=== PATIENT | female | born 1980 | race Caucasian/White ===

== ENCOUNTER 2018-02-03 03:45 | Inpatient (IN) | payer OTHER ==
[2018-02-03] MEDS: ELECTROLYTE-148 SOLN 1,000 ML IV SCH ×2 (04:30→15:00)
[2018-02-03] MEDS ORDERED: AMPICILLIN - 2 GM in SODIUM CHLORIDE 100 ML IVPB ONE (05:03)
--- NOTE | 2018-02-03 05:09 | HP ---
Past Medical History - Primary Care Physician PCP:: Malena Lemus - Admission Limitations to Obtaining History: No Limitations - Past Medical History Gastrointestinal: Yes: Other (gastritis) ...: 1 Additional Medical History: gastritis. hx of fibroid - Past Surgical History Past Surgical History: Yes: None Hx Myomectomy: No Hx Transabdominal Cerclage: No - Smoking History Have you smoked in the past 12 months: No - Alcohol/Substance Use Hx Alcohol Use: No History of Substance Use: reports: None - Social History History of Recent Travel: No Home Medications - Allergies Allergies/Adverse Reactions: Allergies Allergy/AdvReac Type Severity Reaction Status Date / Time No Known Allergies Allergy Verified 02/03/18 04:53 - Home Medications Home Medications: Ambulatory Orders Vit 108/Iron/Folic AC [ One Tablet] 1 each PO DAILY 02/03/18 Physical Exam - Maternity Constitutional: Yes: Well Nourished, Mild Distress HENT: Yes: WNL Neck: Yes: WNL Cardiovascular: Yes: WNL, Regular Rate and Rhythm Lungs: Clear to auscultation Breast(s): Yes: WNL - Abdominal Exam/OB Fundal Height: 40 Number of Fetuses: Single Presentation: Vertex Contractions: Yes Regularity: Irregular Monitor Mode: External Heart Rate (range): 140 Heart Rate Location: [facility] Category: I Accelerations: Non-Uniform - Vaginal Exam/OB Dilatation (cm): closed Amniotic Membrane Status: Ruptured Presentation: Vertex/Position Station: 0 - Physical Exam Musculoskeletal: Yes: WNL Extremities: Yes: WNL Edema: No Psychiatric: Yes: WNL, Alert, Oriented Hemorrhage Risk Assessment - Risk Factors Risk Score: 0 Risk Level: Low Risk Problem List - Problems (1) Spontaneous rupture of amniotic membranes Code(s): HRD3678 - (2) 39 weeks gestation of Code(s): Z3A.39 - 39 WEEKS GESTATION OF Assessment/Plan SROM IUP 39 weeks GBS positive Plan Ampicillin admit to LD
[2018-02-03 05:13] VITALS: BMI 30.6
[2018-02-03 05:15] LABS: BASO % 0.5 % (0-2.0); EOS % 0.7 % (0-4.5); HEMATOCRIT 38.9 % (32.4-45.2); HEMOGLOBIN 12.9 GM/dL (10.7-15.3); LYMPH % 22.1 % (8-40); MCH 29.1 pg (25.7-33.7); MCHC 33.2 g/dl (32.0-36.0); MEAN CELL VOLUME 87.9 fl (80-96); MEAN PLT VOLUME 8.6 fl (7.5-11.1); MONO % 6.3 % (3.8-10.2); NEUT % 70.4 % (42.8-82.8); PLATELET COUNT 276 K/MM3 (134-434); RBC 4.43 M/mm3 (3.60-5.2); RDW 14.4 % (11.6-15.6); WHITE BLOOD COUNT 8.6 K/mm3 (4.0-10.0)
[2018-02-03 05:23] LABS: INR 0.87 (0.83-1.09); PROTHROMBIN TIME (PATIENT) 10.3 SEC (9.7-13.0)
[2018-02-03 05:26] LABS: ACTIVATED PTT 27.5 SECONDS (25.2-36.5)
[2018-02-03 05:34] LABS: ANION GAP 11 MMOL/L (8-16); BLOOD UREA NITROGEN 11 mg/dL (7-18); CHLORIDE 107 mmol/L (98-107); CO2 20 mmol/L (21-32); CREATININE 0.5 mg/dL (0.55-1.3); GLUCOSE,RANDOM 79 mg/dL (74-106); POTASSIUM 4.1 mmol/L (3.5-5.1); SODIUM 138 mmol/L (136-145)
[2018-02-03] MEDS ORDERED: AMPICILLIN SODIUM 1 GM VIAL ONE ×3 (07:24→16:09)
[2018-02-03] MEDS: AMPICILLIN - 1 GM in SODIUM CHLORIDE 100 ML IVPB SCH ×3 (08:13→16:30)
[2018-02-03] MEDS ORDERED: OXYTOCIN 30 UNITS in 0.9% NS 30 UNIT/500 ML INFUS.BAG IVPB SCH (12:15)
[2018-02-03] MEDS ORDERED: FENTANYL/BUPIVACAINE/NS/PF - PCEA - 50 ML DISP.SYRIN EP ONE (14:57)
[2018-02-03] MEDS ORDERED: NALOXONE HCL 0.4 MG/ML VIAL IVPUSH PRN (15:07)
[2018-02-03] MEDS ORDERED: LIDO 2%/EPI 1:200000 PRESRVFRE (20 ML SDVIAL) ONE ×2 (15:09→15:48)
[2018-02-03] MEDS ORDERED: FENTANYL/BUPIVACAINE/NS/PF - PCEA - 50 ML DISP.SYRIN EP SCH (15:15)
[2018-02-03] MEDS ORDERED: OXYTOCIN 20 UNITS in 0.9% NS 20 UNIT/1,000 ML INFUS.BAG IV ONE ×2 (18:30→21:31)
[2018-02-03] MEDS ORDERED: LIDOCAINE HCL 1% PRESERVATIVE FREE - 30ML VIAL ONE (19:00)
[2018-02-03] MEDS ORDERED: WITCH HAZEL 50% (TUCKS) 40 PAD/JAR PAD TP PRN (19:49)
[2018-02-03] MEDS ORDERED: ACETAMINOPHEN 325 MG TABLET (FP) PO PRN (19:49)
[2018-02-03] MEDS ORDERED: METHYLERGONOVINE MALEATE 0.2 MG/1 ML AMP IM PRN (19:49)
[2018-02-03] MEDS ORDERED: BISACODYL 10 MG SUPP.RECT RC PRN (19:49)
[2018-02-03] MEDS ORDERED: BENZOCAINE 20% 57 GM BOTTLE TP PRN (19:49)
[2018-02-03] MEDS ORDERED: IBUPROFEN 600 MG TABLET (FP) PO PRN (19:49)
[2018-02-03] MEDS ORDERED: BENZOCAINE 28 GM HEMORRHOIDAL OINTMENT TP PRN (19:49)
--- NOTE | 2018-02-03 19:53 | PN ---
Delivery - Delivery Vaginal Delivery: Spontaneous Type of Anesthesia: Epidural Episiotomy/Laceration: Vaginal Extension/lac EBL (cc): 300 Delivery, Single - Feeding Plan Initial Plan: Elected not to breastfeed exclusively throughout hospitalization Remarks - Remarks Remarks: Normal spontaneous vaginal delivery of a live girl over third degree laceration. Nose / Oropharynx suctioned @ perineum. Cord clamped and cut. Placenta expelled spontaneously intact. Baby handed to nurse. Laceration repaired with 2.0 Chromic in layers. Mother in stable condition.
[2018-02-03] MEDS ORDERED: OXYTOCIN 20 UNITS in 0.9% NS 20 UNIT/1,000 ML INFUS.BAG IV SCH (20:00)
[2018-02-03] MEDS: FERROUS SO4 325 MG TABLET (FP) PO SCH (23:27)
[2018-02-04 07:06] LABS: BASO % 0.2 % (0-2.0); EOS % 0.3 % (0-4.5); HEMATOCRIT 31.8 % (32.4-45.2); HEMOGLOBIN 10.4 GM/dL (10.7-15.3); MCH 29.1 pg (25.7-33.7); MCHC 32.7 g/dl (32.0-36.0); MEAN CELL VOLUME 88.8 fl (80-96); MEAN PLT VOLUME 8.2 fl (7.5-11.1); NEUT % 81.5 % (42.8-82.8); PLATELET COUNT 204 K/MM3 (134-434); RBC 3.58 M/mm3 (3.60-5.2); RDW 14.6 % (11.6-15.6); WHITE BLOOD COUNT 12.9 K/mm3 (4.0-10.0)
[2018-02-04] MEDS: FERROUS SO4 325 MG TABLET (FP) PO SCH ×2 (10:05→21:14)
[2018-02-04] MEDS: PRENATAL VITAMINS W/ FOLIC ACID TABLET (FP) PO SCH (10:05)
--- NOTE | 2018-02-04 13:09 | PN ---
Post Progress Note - Subjective Subjective: No acute events overnight. Type of Delivery: Vital Signs: Vital Signs Temperature 98.1 F 02/04/18 09:28 Pulse Rate 74 02/04/18 09:28 Respiratory Rate 20 02/04/18 09:28 Blood Pressure 106/62 02/04/18 09:28 O2 Sat by Pulse Oximetry (%) 99 02/03/18 21:00 Uterus: Yes: Fundus Firm Abdomen/GI: Yes: Abdomen soft, Passing flatus, Tolerating PO. No: Tender Lochia: Yes: Rubra Lochia, amount: Small Perineum: Yes: Laceration Activity: Ambulating - Labs Labs: CBC WBC 12.9 K/mm3 (4.0-10.0) H 02/04/18 06:00 RBC 3.58 M/mm3 (3.60-5.2) L 02/04/18 06:00 Hgb 10.4 GM/dL (10.7-15.3) L 02/04/18 06:00 Hct 31.8 % (32.4-45.2) L D 02/04/18 06:00 MCV 88.8 fl (80-96) 02/04/18 06:00 MCH 29.1 pg (25.7-33.7) 02/04/18 06:00 MCHC 32.7 g/dl (32.0-36.0) 02/04/18 06:00 RDW 14.6 % (11.6-15.6) 02/04/18 06:00 Plt Count 204 K/MM3 (134-434) D 02/04/18 06:00 MPV 8.2 fl (7.5-11.1) 02/04/18 06:00 Absolute Neuts (auto) 10.5 K/mm3 (1.5-8.0) H 02/04/18 06:00 Neutrophils % 81.5 % (42.8-82.8) 02/04/18 06:00 Lymphocytes % 11.0 % (8-40) D 02/04/18 06:00 Monocytes % 7.0 % (3.8-10.2) 02/04/18 06:00 Eosinophils % 0.3 % (0-4.5) 02/04/18 06:00 Basophils % 0.2 % (0-2.0) 02/04/18 06:00 Nucleated RBC % 0 % (0-0) 02/04/18 06:00 Problem List - Problems (1) Vaginal delivery Code(s): O80 - ENCOUNTER FOR FULL-TERM UNCOMPLICATED DELIVERY Assessment/Plan Regular diet PO pain meds encourage ambulation routine care
[2018-02-04] MEDS ORDERED: SENNOSIDES/DOCUSATE COMBO (SENNA PLUS) TABLET (UD) PO PRN (22:00)
[2018-02-05 08:37] VITALS: BP 100/59; PULSE 78; TEMP 98.3
[2018-02-05] MEDS: PRENATAL VITAMINS W/ FOLIC ACID TABLET (FP) PO SCH (09:10)
[2018-02-05] MEDS: FERROUS SO4 325 MG TABLET (FP) PO SCH (09:10)
--- NOTE | 2018-02-05 11:30 | DS ---
Physical Exam-TAX DIRECTOR Vital Signs: Vital Signs Temperature 98.3 F 02/05/18 08:35 Pulse Rate 78 02/05/18 08:35 Respiratory Rate 16 02/05/18 08:35 Blood Pressure 100/59 L 02/05/18 08:35 O2 Sat by Pulse Oximetry (%) 99 02/03/18 21:00 Constitutional: Yes: Well Nourished, No Distress Gastrointestinal: Yes: WNL, Normal Bowel Sounds, Soft Labs: CBC, BMP 02/04/18 06:00 02/03/18 04:55 Delivery - Delivery Vaginal Delivery: Spontaneous Type of Anesthesia: Epidural Episiotomy/Laceration: Vaginal Extension/lac, 3rd degree EBL (cc): 300 Delivery, Single - Stages of Labor Date 1st Stage Initiatied: 02/03/18 Time 1st Stage Initiated: 00:00 Date 2nd Stage Initiated: 02/03/18 Time 2nd Stage Initiated: 18:23 Date of Delivery: 02/03/18 Time of Delivery: 19:30 Time Placenta Delivered: 19:31 - Condition of Infant Manager Of Case Management/History Department Chair Present: No Infant Gender: Female Weight: 6 lb 10 oz Position: Right, OA Total Hours ROM (Hrs/Mins): 20 hours 1 minute - 1 Minute Total Score: 9 5 Minutes Total Score: 9 - Feeding Plan Initial Plan: Elected not to breastfeed exclusively throughout hospitalization Discharge Summary Reason For Visit: LABOR ADMIT Current Active Problems 39 weeks gestation of (Acute) Spontaneous rupture of amniotic membranes (Acute) Vaginal delivery (Acute) Procedures: Principal: Normal vaginal delivery Condition: Good - Instructions Diet, Activity, Other Instructions: Physical activity Resume your normal everyday activity as tolerated no heavy lifting or exercise until seen by your surgeon. You may walk unlimited raiza of and climb stairs. You may resume driving the car when you feel safe and comfortable behind the wheel. No sexual activity as instructed. Wound care If you have a bandage, leave it on, and keep dry for 48-72 hours. After that time discard the outer bandage. If they are tapes on the skin under the out of bandage leave them in place. They will peel off in the next 7 to 10 days. Do Not Peel them off. You may shower the day after surgery. If there are tapes present on the skin, you may shower over them. Diet There are no dietary restrictions. Eat healthy, high-fiber foods. Drink 6 to 8 glasses of liquid each day. This will assist in keeping your bowels are regular. Pain management You may take Tylenol or acetaminophen or Ibuprofen (for example, Motrin, Advil etc.) from my pain prescription medication is ordered should be taken as prescribed for moderate to severe pain. Call MD for any of the following: Severe pain not relieved by medication Fever of 101 or higher Excessive bleeding or drainage on dressing Inability to urinate Disposition: HOME - Home Medications Comprehensive Discharge Medication List: Ambulatory Orders Vit 108/Iron/Folic AC [ One Tablet] 1 each PO DAILY 02/03/18 Ibuprofen [Motrin -] 600 mg PO QID #28 tablet 02/05/18
== END 2018-02-05 13:05 | disposition home or self-care (01) | DRG 542 ==
LOC: JLDR 03:45 → UNDOADMIN 03:45 → JLDR 04:00 → J3W 22:29
PROVIDERS: ADMIT Obstetrics & Gynecology; ATTEND Obstetrics & Gynecology
PROC: 10E0XZZ Delivery of Products of Conception, External Approach (ICD-10-PCS; principal; 2018-02-03)
PROC: 0DQR0ZZ Repair Anal Sphincter, Open Approach (ICD-10-PCS; 2018-02-03)
DX: O99.824 Streptococcus B carrier state complicating childbirth (principal); O70.20 Third degree perineal laceration during delivery, unspecified; Z3A.39 39 weeks gestation of pregnancy; Z37.0 Single live birth
CPT/HCPCS: 36415; 59409; 80048; 85025; 85610; 85730; 86593; 86850; 86900; 86901

== ENCOUNTER 2021-03-21 04:38 | Day surgery (SDC) | payer OTHER ==
[2021-03-14 15:25] VITALS: BMI 27.8
[2021-03-21] MEDS ORDERED: IBUPROFEN 400 MG TABLET (FP) PO PRN (11:47)
[2021-03-21] MEDS ORDERED: ACETAMINOPHEN 325 MG TABLET (FP) PO PRN (11:47)
[2021-03-21] MEDS ORDERED: PROPOFOL 20 ML ONE (12:22)
[2021-03-21] MEDS ORDERED: MIDAZOLAM HCL 2 MG/2 ML SINGLE DOSE VIAL ONE (12:22)
[2021-03-21] MEDS ORDERED: LACTATED RINGERS SOLUTION 1,000 ML IV SCH (13:15)
[2021-03-21] MEDS ORDERED: oxyCODONE HCL 5 MG TABLET PO PRN (13:15)
[2021-03-21] MEDS ORDERED: ONDANSETRON 4 MG/2 ML VIAL IVPUSH PRN (13:15)
[2021-03-21] MEDS ORDERED: PROMETHAZINE HCL 25 MG/1 ML VIAL IVPUSH PRN (13:15)
[2021-03-21 15:23] VITALS: BP 119/68; PULSE 73; TEMP 97.5
== END 2021-03-21 15:40 | disposition home or self-care (01) ==
LOC: JASU-SURG 04:38
PROVIDERS: ATTEND Obstetrics & Gynecology
PROC: 0UB98ZZ Excision of Uterus, Via Natural or Artificial Opening Endoscopic (ICD-10-PCS; principal; 2021-03-21 09:30)
PROC: 0UDB8ZZ Extraction of Endometrium, Via Natural or Artificial Opening Endoscopic (ICD-10-PCS; 2021-03-21 09:30)
DX: D25.0 Submucous leiomyoma of uterus (principal)
CPT/HCPCS: 88305-TC; 94760

== ENCOUNTER 2022-01-26 18:58 | Inpatient (IN) | payer OTHER ==
[2022-01-26 19:57] VITALS: BMI 23.0
[2022-01-26] MEDS ORDERED: SODIUM CHLORIDE 0.9% 500 ML INFUS.BAG IV ONE (20:59)
[2022-01-26] MEDS ORDERED: ACETAMINOPHEN 500 MG TABLET (FP) PO ONE (20:59)
[2022-01-26] MEDS ORDERED: ACETAMINOPHEN INJECTION 100 ML IVPB ONE (20:59)
[2022-01-26] MEDS ORDERED: ACETAMINOPHEN 1000 MG/100 ML BAG IVPB ONE (21:08)
[2022-01-26 21:25] LABS: BASO % 0.3 % (0-2.0); EOS % 0.1 % (0-4.5); HEMATOCRIT 39.6 % (32.4-45.2); HEMOGLOBIN 12.9 GM/dL (10.7-15.3); LYMPH % 10.1 % (8-40); MCH 27.6 pg (25.7-33.7); MCHC 32.5 g/dl (32.0-36.0); MEAN CELL VOLUME 84.8 fl (80-96); MEAN PLT VOLUME 7.8 fl (7.5-11.1); MONO % 6.8 % (3.8-10.2); NEUT % 82.7 % (42.8-82.8); PLATELET COUNT 306 10^3/uL (134-434); RBC 4.67 M/mm3 (3.60-5.2); RDW 13.7 % (11.6-15.6); WHITE BLOOD COUNT 8.5 K/mm3 (4.0-10.0)
[2022-01-26 21:32] LABS: EPI CELLS 23 /uL (0-25.1); HYALINE CASTS 3 /uL (0-3.1); PH,URINE 6.5 (5.0-8.0); URINE APPEARANCE CLEAR; URINE BACTERIA 1648 /uL (0-1359); URINE BILIRUBIN NEGATIVE (NEGATIVE); URINE COLOR DK YELLOW; URINE GLUCOSE (UA) NEGATIVE (NEGATIVE); URINE KETONE 4+ (NEGATIVE); URINE LEUK ESTERASE 2+ (NEGATIVE); URINE NITRITE NEGATIVE (NEGATIVE); URINE PROTEIN 1+ (NEGATIVE); URINE RBC 40 /uL (0-23.9); URINE WBC 252 /uL (0-25.8)
[2022-01-26 21:42] LABS: ALBUMIN 2.6 g/dl (3.4-5.0); BLOOD UREA NITROGEN 4.4 mg/dL (7-18); CALCIUM 8.3 mg/dL (8.5-10.1)
[2022-01-26 21:45] LABS: CREATININE 0.5 mg/dL (0.55-1.3)
[2022-01-26 21:47] LABS: BILIRUBIN,TOTAL 0.4 mg/dL (0.2-1); TOT PROT 6.5 g/dl (6.4-8.2)
[2022-01-26] MEDS ORDERED: CEFTRIAXONE 1 GM/50 ML BAG ONE (22:16)
[2022-01-26] MEDS ORDERED: DEXTROSE 5%-NORMAL SALINE 1,000 ML IV SCH (23:45)
[2022-01-27] MEDS ORDERED: ACETAMINOPHEN 1000 MG/100 ML BAG IVPB PRN (00:26)
[2022-01-27] MEDS: ELECTROLYTE-148 SOLN 1,000 ML IV SCH ×2 (02:53→12:06)
[2022-01-27] MEDS: PRENATAL VITAMINS W/ FOLIC ACID TABLET (FP) PO SCH (10:41)
[2022-01-27] MEDS: NITROFURANTOIN MACROCRYSTAL 50 MG CAPSULE (FP) PO SCH ×2 (14:18→18:57)
[2022-01-27] MEDS ORDERED: guaiFENesin/D-METHORPHAN HB 10 ML UNIT-DOSE CUPS PO ONE (14:27)
[2022-01-27] MEDS: OSELTAMIVIR PHOSPHATE 75 MG CAPSULE PO SCH ×2 (15:48→22:48)
[2022-01-27] MEDS: CEFTRIAXONE 2 GM in DEXTROSE 5%-WATER 100 ML IVPB SCH (22:47)
[2022-01-28] MEDS: PRENATAL VITAMINS W/ FOLIC ACID TABLET (FP) PO SCH (09:05)
[2022-01-28] MEDS: OSELTAMIVIR PHOSPHATE 75 MG CAPSULE PO SCH ×2 (09:12→21:34)
[2022-01-28] MEDS: CEFTRIAXONE 2 GM in DEXTROSE 5%-WATER 100 ML IVPB SCH (11:30)
[2022-01-28 11:58] LABS: BASO % 0.6 % (0-2.0); EOS % 0.5 % (0-4.5); HEMATOCRIT 35.7 % (32.4-45.2); LYMPH % 22.4 % (8-40); MCH 28.1 pg (25.7-33.7); MCHC 33.6 g/dl (32.0-36.0); MEAN CELL VOLUME 83.7 fl (80-96); MEAN PLT VOLUME 7.9 fl (7.5-11.1); MONO % 5.3 % (3.8-10.2); NEUT % 71.2 % (42.8-82.8); PLATELET COUNT 274 10^3/uL (134-434); RBC 4.27 M/mm3 (3.60-5.2); WHITE BLOOD COUNT 4.8 K/mm3 (4.0-10.0)
[2022-01-28 12:23] LABS: CHLORIDE 109 mmol/L (98-107); SODIUM 143 mmol/L (136-145)
[2022-01-28 12:41] LABS: ANION GAP 10 MMOL/L (8-16); CO2 24 mmol/L (21-32); GLUCOSE,RANDOM 106 mg/dL (74-106); MAGNESIUM 2.1 mg/dL (1.8-2.4)
[2022-01-28 12:43] LABS: CREATININE 0.4 mg/dL (0.55-1.3); SGOT/AST 22 U/L (15-37)
[2022-01-28 12:44] LABS: PHOSPHOROUS 2.7 mg/dL (2.5-4.9); SGPT/ALT 25 U/L (13-61)
[2022-01-28 12:45] LABS: BILIRUBIN,TOTAL 0.7 mg/dL (0.2-1); TOT PROT 5.5 g/dl (6.4-8.2)
[2022-01-28 12:47] LABS: ALBUMIN 2.1 g/dl (3.4-5.0); ALK PHOS 176 U/L (45-117); BLOOD UREA NITROGEN 2.6 mg/dL (7-18)
[2022-01-28] MEDS: ELECTROLYTE-148 SOLN 1,000 ML IV SCH (19:21)
[2022-01-28] MEDS: guaiFENesin 200 MG/10 ML 10 ML UNIT-DOSE CUPS PO PRN (19:31)
[2022-01-28] MEDS: SODIUM CHLORIDE 1,000 ML IV SCH (20:37)
[2022-01-28] MEDS: DOCUSATE SODIUM 100 MG CAPSULE (FP) PO SCH (21:34)
[2022-01-29] MEDS: ELECTROLYTE-148 SOLN 1,000 ML IV SCH (01:34)
[2022-01-29] MEDS: guaiFENesin 200 MG/10 ML 10 ML UNIT-DOSE CUPS PO PRN (01:35)
[2022-01-29] MEDS: SODIUM CHLORIDE 1,000 ML IV SCH ×2 (06:15→21:23)
[2022-01-29 08:50] LABS: BASO % 0.4 % (0-2.0); HEMATOCRIT 31.5 % (32.4-45.2); HEMOGLOBIN 10.6 GM/dL (10.7-15.3); MCH 28.2 pg (25.7-33.7); MCHC 33.5 g/dl (32.0-36.0); MEAN CELL VOLUME 84.1 fl (80-96); MEAN PLT VOLUME 7.6 fl (7.5-11.1); MONO % 6.3 % (3.8-10.2); NEUT % 63.3 % (42.8-82.8); PLATELET COUNT 255 10^3/uL (134-434); RBC 3.75 M/mm3 (3.60-5.2); RDW 14.1 % (11.6-15.6); WHITE BLOOD COUNT 4.4 K/mm3 (4.0-10.0)
[2022-01-29] MEDS ORDERED: guaiFENesin/CODEINE 5 ML UNIT-DOSE CUPS PO PRN (09:04)
[2022-01-29] MEDS ORDERED: guaiFENesin/CODEINE 5 ML UNIT-DOSE CUPS PO ONE (09:05)
[2022-01-29 09:18] LABS: CALCIUM 7.5 mg/dL (8.5-10.1)
[2022-01-29 09:19] LABS: BLOOD UREA NITROGEN 3.7 mg/dL (7-18)
[2022-01-29 09:21] LABS: ALBUMIN 1.7 g/dl (3.4-5.0)
[2022-01-29 09:22] LABS: CREATININE 0.3 mg/dL (0.55-1.3)
[2022-01-29 09:23] LABS: BILIRUBIN,TOTAL 0.4 mg/dL (0.2-1); TOT PROT 4.5 g/dl (6.4-8.2)
[2022-01-29] MEDS: PRENATAL VITAMINS W/ FOLIC ACID TABLET (FP) PO SCH (10:02)
[2022-01-29] MEDS: CEFTRIAXONE 2 GM in DEXTROSE 5%-WATER 100 ML IVPB SCH (10:03)
[2022-01-29] MEDS: OSELTAMIVIR PHOSPHATE 75 MG CAPSULE PO SCH ×2 (10:04→21:27)
[2022-01-29] MEDS: DOCUSATE SODIUM 100 MG CAPSULE (FP) PO SCH (21:27)
[2022-01-30 07:44] LABS: BASO % 0.3 % (0-2.0); HEMATOCRIT 32.3 % (32.4-45.2); HEMOGLOBIN 10.8 GM/dL (10.7-15.3); LYMPH % 32.2 % (8-40); MCH 27.8 pg (25.7-33.7); MCHC 33.4 g/dl (32.0-36.0); MEAN CELL VOLUME 83.3 fl (80-96); MEAN PLT VOLUME 7.8 fl (7.5-11.1); MONO % 5.8 % (3.8-10.2); NEUT % 60.7 % (42.8-82.8); PLATELET COUNT 253 10^3/uL (134-434); RBC 3.88 M/mm3 (3.60-5.2); RDW 13.8 % (11.6-15.6); WHITE BLOOD COUNT 4.6 K/mm3 (4.0-10.0)
[2022-01-30 07:59] LABS: CALCIUM 7.7 mg/dL (8.5-10.1)
[2022-01-30 08:00] LABS: ALBUMIN 1.8 g/dl (3.4-5.0); BLOOD UREA NITROGEN 4.2 mg/dL (7-18); MAGNESIUM 1.8 mg/dL (1.8-2.4)
[2022-01-30 08:03] LABS: CREATININE 0.3 mg/dL (0.55-1.3); PHOSPHOROUS 3.1 mg/dL (2.5-4.9)
[2022-01-30 08:04] LABS: BILIRUBIN,TOTAL 0.3 mg/dL (0.2-1); TOT PROT 4.8 g/dl (6.4-8.2)
[2022-01-30] MEDS: PRENATAL VITAMINS W/ FOLIC ACID TABLET (FP) PO SCH (10:19)
[2022-01-30] MEDS: OSELTAMIVIR PHOSPHATE 75 MG CAPSULE PO SCH ×2 (10:19→21:19)
[2022-01-30] MEDS: CEFTRIAXONE 2 GM in DEXTROSE 5%-WATER 100 ML IVPB SCH (10:20)
[2022-01-30] MEDS: DOCUSATE SODIUM 100 MG CAPSULE (FP) PO SCH (21:19)
[2022-01-31 09:45] VITALS: BP 104/68; PULSE 66; RESP 18; TEMP 97.8
[2022-01-31] MEDS: OSELTAMIVIR PHOSPHATE 75 MG CAPSULE PO SCH (10:22)
[2022-01-31] MEDS: PRENATAL VITAMINS W/ FOLIC ACID TABLET (FP) PO SCH (10:22)
== END 2022-01-31 12:30 | disposition home or self-care (01) | DRG 566 ==
LOC: JER 18:58 → JERBED 22:18 → J3W 01-27 03:51
PROVIDERS: ADMIT Obstetrics & Gynecology; ATTEND Obstetrics & Gynecology
DX: O23.03 Infections of kidney in pregnancy, third trimester (principal); N13.6 Pyonephrosis; M54.9 Dorsalgia, unspecified; J10.1 Influenza due to other identified influenza virus with other respiratory manifestations; I95.9 Hypotension, unspecified; Z3A.30 30 weeks gestation of pregnancy; R05.9 Cough, unspecified
CPT/HCPCS: 0241U-QW; 36415; 76775-TC; 80053; 81003; 83735; 84100; 84703; 85025; 87040; 87086; 99285-25

== ENCOUNTER 2022-03-22 02:55 | Inpatient (IN) | payer OTHER ==
[2022-03-22] MEDS: ELECTROLYTE-148 SOLN 1,000 ML IV SCH ×2 (03:30→05:30)
[2022-03-22 05:16] LABS: BASO % 0.3 % (0-2.0); EOS % 0.5 % (0-4.5); HEMATOCRIT 33.7 % (32.4-45.2); HEMOGLOBIN 11.2 GM/dL (10.7-15.3); LYMPH % 21.5 % (8-40); MCH 27.7 pg (25.7-33.7); MCHC 33.3 g/dl (32.0-36.0); MEAN CELL VOLUME 83.2 fl (80-96); MEAN PLT VOLUME 8.6 fl (7.5-11.1); MONO % 6.7 % (3.8-10.2); PLATELET COUNT 266 10^3/uL (134-434); RBC 4.05 M/mm3 (3.60-5.2); RDW 15.1 % (11.6-15.6)
[2022-03-22 05:24] VITALS: BMI 29.8
[2022-03-22 05:29] LABS: INR 0.92 (0.83-1.09); PROTHROMBIN TIME (PATIENT) 10.6 SEC (9.7-13.0)
[2022-03-22] MEDS ORDERED: LIDOCAINE HCL 1% PRESERVATIVE FREE - 30ML VIAL ONE (05:29)
[2022-03-22] MEDS ORDERED: FENTANYL/BUPIVACAINE/NS/PF - PCEA - 50 ML DISP.SYRIN EP ONE (05:29)
[2022-03-22] MEDS ORDERED: OXYTOCIN 20 UNITS in 0.9% NS 20 UNIT/1,000 ML INFUS.BAG IV ONE (05:30)
[2022-03-22 05:32] LABS: ACTIVATED PTT 27.5 SECONDS (25.2-36.5)
[2022-03-22] MEDS ORDERED: BUPIVACAINE HCL/PF 0.25% (2.5MG/ML) 10 ML VIAL ONE (05:34)
[2022-03-22 05:43] LABS: CALCIUM 7.9 mg/dL (8.5-10.1)
[2022-03-22 05:44] LABS: ALBUMIN 2.2 g/dl (3.4-5.0); BLOOD UREA NITROGEN 5.9 mg/dL (7-18)
[2022-03-22 05:47] LABS: CREATININE 0.5 mg/dL (0.55-1.3)
[2022-03-22 05:48] LABS: BILIRUBIN,TOTAL 0.3 mg/dL (0.2-1); TOT PROT 5.3 g/dl (6.4-8.2)
[2022-03-22] MEDS ORDERED: NALOXONE HCL 0.4 MG/ML VIAL IVPUSH PRN ×2 (06:00→23:37)
[2022-03-22] MEDS ORDERED: FENTANYL/BUPIVACAINE/NS/PF - PCEA - 50 ML DISP.SYRIN EP SCH ×2 (06:00→23:37)
[2022-03-22 06:40] LABS: HIV INTERPRETATION NEGATIVE (NEGATIVE)
[2022-03-22] MEDS ORDERED: ceFAZolin SODIUM 1 GM VIAL ONE (07:34)
[2022-03-22] MEDS ORDERED: TRANEXAMIC ACID 1000 MG/10 ML VIAL ONE (07:50)
[2022-03-22] MEDS ORDERED: LIDO 2%/EPI 1:200000 PRESRVFRE (20 ML SDVIAL) ONE (08:23)
[2022-03-22 08:37] LABS: CORD BASE EXCESS -2.7 mmol/L (0-2); CORD PCO2 43.4 mmHg (30-78); CORD pH 7.342 (7.14-7.44)
[2022-03-22] MEDS ORDERED: CLINDAMYCIN 900 MG PREMIX IVPB 900 MG/50 ML BAG IVPB ONE (08:39)
[2022-03-22 08:47] LABS: BASO % 0.4 % (0-2.0); EOS % 0.1 % (0-4.5); HEMATOCRIT 31.5 % (32.4-45.2); HEMOGLOBIN 10.5 GM/dL (10.7-15.3); LYMPH % 11.4 % (8-40); MCH 27.5 pg (25.7-33.7); MCHC 33.3 g/dl (32.0-36.0); MEAN CELL VOLUME 82.6 fl (80-96); MEAN PLT VOLUME 8.2 fl (7.5-11.1); MONO % 4.1 % (3.8-10.2); PLATELET COUNT 280 10^3/uL (134-434); RBC 3.82 M/mm3 (3.60-5.2); RDW 14.9 % (11.6-15.6); WHITE BLOOD COUNT 10.6 K/mm3 (4.0-10.0)
[2022-03-22] MEDS ORDERED: BENZOCAINE 20% 57 GM BOTTLE TP PRN ×2 (09:12→23:37)
[2022-03-22] MEDS ORDERED: WITCH HAZEL 50% (TUCKS) 40 PAD/JAR PAD TP PRN ×2 (09:12→23:37)
[2022-03-22] MEDS ORDERED: BENZOCAINE 28 GM HEMORRHOIDAL OINTMENT TP PRN ×2 (09:12→23:37)
[2022-03-22] MEDS ORDERED: oxyCODONE HCL 5 MG TABLET PO PRN ×2 (09:12→23:37)
[2022-03-22] MEDS ORDERED: IBUPROFEN 600 MG TABLET (FP) PO PRN (09:12)
[2022-03-22] MEDS ORDERED: BISACODYL 10 MG SUPP.RECT RC PRN ×2 (09:12→23:37)
[2022-03-22] MEDS ORDERED: METHYLERGONOVINE MALEATE 0.2 MG/1 ML AMP IM PRN ×2 (09:12→23:37)
[2022-03-22] MEDS ORDERED: ACETAMINOPHEN 325 MG TABLET (FP) PO PRN ×2 (09:12→23:37)
[2022-03-22] MEDS ORDERED: OXYTOCIN 20 UNITS in 0.9% NS 20 UNIT/1,000 ML INFUS.BAG IV SCH (09:15)
[2022-03-22] MEDS ORDERED: ELECTROLYTE-148 SOLN 1,000 ML IV SCH (09:15)
[2022-03-22] MEDS ORDERED: MIDAZOLAM HCL 2 MG/2 ML SINGLE DOSE VIAL ONE (09:29)
[2022-03-22] MEDS ORDERED: ceFAZolin SODIUM 1 GM VIAL IVPB ONE (09:30)
[2022-03-22] MEDS ORDERED: PRENATAL VITAMINS W/ FOLIC ACID TABLET (FP) PO SCH (10:00)
[2022-03-22] MEDS ORDERED: ONDANSETRON 4 MG/2 ML VIAL IVPUSH PRN (10:46)
[2022-03-22] MEDS ORDERED: LACTATED RINGERS SOLUTION 1,000 ML IV SCH (11:00)
[2022-03-22] MEDS ORDERED: CEFAZOLIN SODIUM 2 GM in SODIUM CHLORIDE 100 ML IVPB ONE (11:30)
[2022-03-22 11:45] LABS: HEMATOCRIT 43.9 % (32.4-45.2); HEMOGLOBIN 14.2 GM/dL (10.7-15.3); MCH 26.9 pg (25.7-33.7); MCHC 32.3 g/dl (32.0-36.0); MEAN CELL VOLUME 83.2 fl (80-96); MEAN PLT VOLUME 8.2 fl (7.5-11.1); PLATELET COUNT 225 10^3/uL (134-434); RBC 5.27 M/mm3 (3.60-5.2); RDW 16.1 % (11.6-15.6); WHITE BLOOD COUNT 17.2 K/mm3 (4.0-10.0)
[2022-03-22 11:54] LABS: INR 0.91 (0.83-1.09); PROTHROMBIN TIME (PATIENT) 10.4 SEC (9.7-13.0)
[2022-03-22 11:57] LABS: ACTIVATED PTT 24.7 SECONDS (25.2-36.5)
[2022-03-22 12:05] LABS: CALCIUM 7.3 mg/dL (8.5-10.1)
[2022-03-22 12:06] LABS: BLOOD UREA NITROGEN 5.2 mg/dL (7-18)
[2022-03-22 12:08] LABS: CREATININE 0.6 mg/dL (0.55-1.3)
[2022-03-22] MEDS: OXYTOCIN 10 UNITS/ML VIAL ONE ×2 (12:45→13:15)
[2022-03-22] MEDS ORDERED: OXYTOCIN 10 UNITS/ML VIAL ONE ×2 (13:11→13:12)
[2022-03-22] MEDS ORDERED: LACTATED RINGERS IV SCH (14:30)
[2022-03-22] MEDS ORDERED: OXYTOCIN IV SCH (14:30)
[2022-03-22] MEDS: CLINDAMYCIN 600MG PREMIX IVPB 600 MG/50 ML BAG IVPB SCH ×2 (15:52→17:52)
[2022-03-22] MEDS: FERROUS SO4 325 MG TABLET (FP) PO SCH ×2 (15:53→17:52)
[2022-03-22] MEDS: OXYTOCIN 20 UNITS in LACTATED RINGERS SOLUTION 1,000 ML IV SCH ×2 (15:54→22:51)
[2022-03-22] MEDS ORDERED: ACETAMINOPHEN 1000 MG/100 ML BAG IVPB STA (16:53)
[2022-03-22 19:34] LABS: HEMATOCRIT 35.6 % (32.4-45.2); MCH 27.2 pg (25.7-33.7); MCHC 33.7 g/dl (32.0-36.0); MEAN CELL VOLUME 80.5 fl (80-96); MEAN PLT VOLUME 8.8 fl (7.5-11.1); PLATELET COUNT 214 10^3/uL (134-434); RBC 4.43 M/mm3 (3.60-5.2); RDW 15.8 % (11.6-15.6); WHITE BLOOD COUNT 17.8 K/mm3 (4.0-10.0)
[2022-03-22 19:38] LABS: CALCIUM 7.7 mg/dL (8.5-10.1)
[2022-03-22 19:39] LABS: BLOOD UREA NITROGEN 4.4 mg/dL (7-18); MAGNESIUM 1.9 mg/dL (1.8-2.4)
[2022-03-22 19:42] LABS: CREATININE 0.5 mg/dL (0.55-1.3)
[2022-03-23] MEDS: IBUPROFEN 600 MG TABLET (FP) PO PRN ×3 (00:55→13:25)
[2022-03-23] MEDS ORDERED: CLINDAMYCIN 600MG PREMIX IVPB 600 MG/50 ML BAG IVPB SCH (02:00)
[2022-03-23] MEDS ORDERED: OXYTOCIN 20 UNITS in LACTATED RINGERS SOLUTION 1,000 ML IV SCH (06:30)
[2022-03-23 08:26] LABS: HEMATOCRIT 30.9 % (32.4-45.2); HEMOGLOBIN 10.6 GM/dL (10.7-15.3); MCH 27.7 pg (25.7-33.7); MCHC 34.3 g/dl (32.0-36.0); MEAN CELL VOLUME 80.9 fl (80-96); MEAN PLT VOLUME 8.5 fl (7.5-11.1); PLATELET COUNT 206 10^3/uL (134-434); RBC 3.82 M/mm3 (3.60-5.2); RDW 16.2 % (11.6-15.6); WHITE BLOOD COUNT 11.7 K/mm3 (4.0-10.0)
[2022-03-23 08:29] LABS: BASO % 0.2 % (0-2.0); EOS % 0.2 % (0-4.5); HEMATOCRIT 31.6 % (32.4-45.2); HEMOGLOBIN 10.6 GM/dL (10.7-15.3); LYMPH % 17.2 % (8-40); MCH 27.1 pg (25.7-33.7); MCHC 33.4 g/dl (32.0-36.0); MEAN CELL VOLUME 81.1 fl (80-96); MEAN PLT VOLUME 8.3 fl (7.5-11.1); MONO % 6.7 % (3.8-10.2); NEUT % 75.7 % (42.8-82.8); PLATELET COUNT 211 10^3/uL (134-434); RDW 15.9 % (11.6-15.6)
[2022-03-23 08:49] LABS: CALCIUM 7.5 mg/dL (8.5-10.1)
[2022-03-23 08:56] LABS: CREATININE 0.5 mg/dL (0.55-1.3)
[2022-03-23] MEDS: PRENATAL VITAMINS W/ FOLIC ACID TABLET (FP) PO SCH (09:23)
[2022-03-23] MEDS: FERROUS SO4 325 MG TABLET (FP) PO SCH ×3 (09:24→16:50)
[2022-03-23] MEDS ORDERED: DIPHTH,PERTUSS(ACELL),TET 0.5 ML DISP.SYRIN IM ONE (10:00)
[2022-03-23] MEDS: AMOX TR/POT CLAV 500MG/125MG TABLETS (FP) PO SCH (16:50)
[2022-03-23] MEDS ORDERED: SENNOSIDES/DOCUSATE COMBO (SENNA PLUS) TABLET (UD) PO PRN ×2 (22:00)
[2022-03-24] MEDS: AMOX TR/POT CLAV 500MG/125MG TABLETS (FP) PO SCH ×2 (09:00→17:58)
[2022-03-24] MEDS: FERROUS SO4 325 MG TABLET (FP) PO SCH ×3 (09:00→17:58)
[2022-03-24] MEDS: PRENATAL VITAMINS W/ FOLIC ACID TABLET (FP) PO SCH (09:00)
[2022-03-25 08:59] VITALS: BP 117/77; PULSE 64; RESP 17; TEMP 97.9
[2022-03-25] MEDS: AMOX TR/POT CLAV 500MG/125MG TABLETS (FP) PO SCH (09:22)
[2022-03-25] MEDS: PRENATAL VITAMINS W/ FOLIC ACID TABLET (FP) PO SCH (09:23)
[2022-03-25] MEDS: FERROUS SO4 325 MG TABLET (FP) PO SCH ×2 (09:23→13:32)
== END 2022-03-25 14:20 | disposition home or self-care (01) | DRG 541 ==
LOC: JDEL 02:55 → JLDR 04:29 → J3W 11:28 → JICU 11:31 → J3W 22:54
PROVIDERS: ADMIT Obstetrics & Gynecology; ATTEND Obstetrics & Gynecology
PROC: 10D17Z9 Manual Extraction of Products of Conception, Retained, Via Natural or Artificial Opening (ICD-10-PCS; 2022-03-22)
PROC: 30233K1 Transfusion of Nonautologous Frozen Plasma into Peripheral Vein, Percutaneous Approach (ICD-10-PCS; 2022-03-22)
PROC: 30233N1 Transfusion of Nonautologous Red Blood Cells into Peripheral Vein, Percutaneous Approach (ICD-10-PCS; 2022-03-22)
PROC: 0W3R7ZZ Control Bleeding in Genitourinary Tract, Via Natural or Artificial Opening (ICD-10-PCS; 2022-03-22)
PROC: 0HQ9XZZ Repair Perineum Skin, External Approach (ICD-10-PCS; 2022-03-22)
PROC: 10E0XZZ Delivery of Products of Conception, External Approach (ICD-10-PCS; principal; 2022-03-22 09:10)
DX: O43.213 Placenta accreta, third trimester (principal); O72.0 Third-stage hemorrhage; O69.81X0 Labor and delivery complicated by cord around neck, without compression, not applicable or unspecified; O70.0 First degree perineal laceration during delivery; Z3A.39 39 weeks gestation of pregnancy; Z37.0 Single live birth
CPT/HCPCS: 36415; 36600; 59409; 74018-TC-FY; 76817-TC; 76856-TC; 80048; 80053; 82803; 83735; 84100; 85025; 85027; 85384; 85610; 85730; 86780; 86922; 87389; 88305-TC; 88307-TC; 90715; 94760; C9803-CS; P9017; P9058; U0003; U0005

== ENCOUNTER 2022-06-02 04:05 | Day surgery (SDC) | payer OTHER ==
[2022-05-27 12:21] VITALS: BMI 28.3
[~2022-06-02 04:05] MED LIST: BUPIVACAINE HCL/PF 0.5% (5MG/ML) 10 ML VIAL IJ ONE
[2022-06-02] MEDS ORDERED: ROCURONIUM BROMIDE 50 MG/5 ML SYRINGE ONE (07:15)
[2022-06-02] MEDS ORDERED: ONDANSETRON 4 MG/2 ML VIAL ONE (07:15)
[2022-06-02] MEDS ORDERED: DEXAMETHASONE SOD PHOSPHATE 4 MG/1 ML VIAL ONE (07:15)
[2022-06-02] MEDS ORDERED: PROPOFOL 20 ML ONE (07:15)
[2022-06-02] MEDS ORDERED: LIDOCAINE HCL/PF 2% SDV 5ML VIAL ONE ×2 (07:15→07:17)
[2022-06-02] MEDS ORDERED: MIDAZOLAM HCL 2 MG/2 ML SINGLE DOSE VIAL ONE (07:15)
[2022-06-02] MEDS ORDERED: KETOROLAC TROMETHAMINE 30 MG/1 ML VIAL ONE (07:16)
[2022-06-02] MEDS ORDERED: BUPIVACAINE HCL/PF 0.5% (5MG/ML) 10 ML VIAL ONE (07:25)
[2022-06-02] MEDS ORDERED: ONDANSETRON 4 MG/2 ML VIAL IVPUSH PRN (07:36)
[2022-06-02] MEDS ORDERED: oxyCODONE HCL 5 MG TABLET PO PRN ×2 (07:36)
[2022-06-02] MEDS ORDERED: PROMETHAZINE HCL 25 MG/1 ML VIAL IVPB PRN (07:36)
[2022-06-02] MEDS ORDERED: ACETAMINOPHEN 1000 MG/100 ML BAG IVPB PRN (07:37)
[2022-06-02] MEDS ORDERED: LACTATED RINGERS SOLUTION 1,000 ML IV SCH (07:45)
[2022-06-02] MEDS ORDERED: ceFAZolin SODIUM 1 GM VIAL IVPB ONE (07:55)
[2022-06-02] MEDS ORDERED: ceFAZolin SODIUM 1 GM VIAL ONE (07:55)
[2022-06-02] MEDS ORDERED: NEOSTIGMINE METHYLSULFATE 0.5 MG/1 ML - 10 ML MDV ONE (08:28)
[2022-06-02] MEDS ORDERED: GLYCOPYRROLATE 0.2 MG/1 ML VIAL ONE (08:28)
[2022-06-02] MEDS ORDERED: BUPIVACAINE HCL/PF 0.5% (5MG/ML) 10 ML VIAL IJ ONE (08:32)
[2022-06-02] MEDS ORDERED: ACETAMINOPHEN INJECTION 100 ML IVPB ONE (10:40)
[2022-06-02 14:49] VITALS: RESP 20; TEMP 97.1
[2022-06-02 14:53] VITALS: BP 129/52; PULSE 81
== END 2022-06-02 14:20 | disposition home or self-care (01) ==
LOC: JASU-SURG 04:05
PROVIDERS: ATTEND Obstetrics & Gynecology
PROC: 0UB74ZZ Excision of Bilateral Fallopian Tubes, Percutaneous Endoscopic Approach (ICD-10-PCS; principal; 2022-06-02 07:30)
DX: Z30.2 Encounter for sterilization (principal)
CPT/HCPCS: 81025; 88302-TC; 94760